=== PATIENT | male | born 1980 ===

== ENCOUNTER 2021-05-14 18:09 | Emergency (ER) | payer OTHER ==
[~2021-05-14] VITALS: Ht 175.3 cm; Wt 72.6 kg
== END 2021-05-14 19:40 | disposition home or self-care (01) ==
LOC: ER 18:09
DX: S43.005A Unspecified dislocation of left shoulder joint, initial encounter (principal); W01.0XXA Fall on same level from slipping, tripping and stumbling without subsequent striking against object, initial encounter
CPT/HCPCS: 73030; 99283-25